=== PATIENT | female | born 1995 | race Caucasian/White ===

== ENCOUNTER → 2017-03-25 | Outpatient (CLI) | payer OTHER | END | disposition home or self-care (01) | LOC: C.MAMM 08:17 | DX: N91.5 Oligomenorrhea, unspecified (principal) ==

== ENCOUNTER → 2017-06-21 | Outpatient (CLI) | payer OTHER ==
--- NOTE | 2017-06-21 14:07 | DIAGNOSTIC IMAGING REPORT ---
RIGHT ANKLE 4 VIEWS HISTORY: RIGHT ANKLE PAIN COMPARISON: None. FINDINGS: There is a subtle cortical step-off and tiny cortical lucency at the distal shaft of the fibula. This is concerning for a nondisplaced fracture. Mild lateral soft tissue swelling. No radiopaque foreign bodies. IMPRESSION: There is a subtle cortical step-off and tiny cortical lucency at the distal shaft of the fibula. This is concerning for a nondisplaced fracture. Electronically signed by: Jarvis Morillo M.D. 06/21/2017 2:05 PM Dictated Date/Time: 06/21/2017 1:52 PM
== END | disposition home or self-care (01) ==
LOC: C.RDSM 16:44
PROVIDERS: ATTEND Internal Medicine
DX: M25.571 Pain in right ankle and joints of right foot (principal)

== ENCOUNTER → 2017-07-08 | Outpatient (CLI) | payer OTHER ==
--- NOTE | 2017-07-08 15:49 | DIAGNOSTIC IMAGING REPORT ---
RIGHT TIBIA AND FIBULA 4 VIEWS CLINICAL HISTORY: Stress fracture. FINDINGS: AP, lateral, internally rotated, and externally rotated views of the right tibia and fibula are correlated with right ankle radiographs dated 06/21/2017. The skeletal structures are well mineralized. There is a healing fracture identified involving the distal fibular shaft with overlying callus formation. No additional fracture is seen. The knee and ankle joints are grossly maintained. The overlying soft tissues are within normal limits. IMPRESSION: There is a healing fracture of the distal fibula as above. Electronically signed by: Savage Chun M.D. 07/08/2017 3:47 PM Dictated Date/Time: 07/08/2017 3:45 PM
== END | disposition home or self-care (01) ==
LOC: C.RDSM 15:00
PROVIDERS: ATTEND Internal Medicine
DX: M84.30XA Stress fracture, unspecified site, initial encounter for fracture (principal)